=== PATIENT | female | born 1985 | race Caucasian/White ===

== ENCOUNTER 2021-06-28 06:48 | Day surgery (SDC) | payer BC ==
[~2021-06-28] VITALS: Ht 170.2 cm; Wt 72.9 kg
[~2021-06-28 06:48] MED LIST: IPRATROPIUM 0.5 MG/2.5 ML INHA ONE
[2021-06-28] MEDS ORDERED: NO HOME MEDS PER PT (07:13)
[2021-06-28 07:14] VITALS: BP 116/79
[2021-06-28] MEDS ORDERED: LACTATED RINGERS 1,000 ML IV SCH (07:30)
[2021-06-28] MEDS ORDERED: CHLORHEXIDINE 15 ML UDC PO ONE (07:30)
[2021-06-28 07:33] LABS: HCG UR SG 1.009 (1.003-1.030)
[2021-06-28] MEDS ORDERED: MIDAZOLAM 1 MG/ML, 2ML ONE (08:23)
[2021-06-28] MEDS ORDERED: FENTANYL PF 250 MCG/5ML ONE (08:23)
[2021-06-28] MEDS ORDERED: SENN-99 PO (08:25)
[2021-06-28] MEDS ORDERED: ACET325T14 PO (08:25)
[2021-06-28] MEDS ORDERED: IBUP200T49 PO (08:25)
[2021-06-28] MEDS ORDERED: OXYC5TAB2 PO (08:25)
[2021-06-28] MEDS ORDERED: CEFAZOLIN 1,000 MG ONE (08:47)
[2021-06-28] MEDS ORDERED: ONDANSETRON 2MG/ML, 2ML ONE (08:47)
[2021-06-28] MEDS ORDERED: GLYCOPYRROLATE 0.2MG/1ML, 5ML ONE (08:47)
[2021-06-28] MEDS ORDERED: ROCURONIUM 10MG/ML,5ML ONE (08:47)
[2021-06-28] MEDS ORDERED: SUCCINYLCHOLINE 20 MG/ML, 10ML ONE (08:47)
[2021-06-28] MEDS ORDERED: NEOSTIGMINE 1 MG/ML, 10ML ONE (08:47)
[2021-06-28] MEDS ORDERED: PROPOFOL 10 MG/ML, 20ML ONE (08:47)
[2021-06-28] MEDS ORDERED: DEXAMETHASONE 4 MG/ML, 1ML ONE (08:47)
[2021-06-28] MEDS ORDERED: HYDROmorphone 2 MG/ML, 1ML IVPush PRN ×2 (09:00)
[2021-06-28] MEDS ORDERED: MEPERIDINE/PF 25MG/0.5ML IVPush PRN ×2 (09:00)
[2021-06-28] MEDS ORDERED: LABETALOL 5MG/ML, 20ML IV PRN ×2 (09:00)
[2021-06-28] MEDS ORDERED: OXYcodone 5 MG/5 ML ORAL.SOL UDC PO PRN ×2 (09:00)
[2021-06-28] MEDS ORDERED: hydrALAzine 20 MG/ML, 1ML IV PRN ×2 (09:00)
[2021-06-28] MEDS ORDERED: KETOROLAC 30 MG/1 ML IV PRN ×2 (09:00)
[2021-06-28] MEDS ORDERED: ALBUTEROL SULFATE 2.5 MG/3 ML NPPB PRN ×2 (09:00)
[2021-06-28] MEDS ORDERED: ACETAMINOPHEN 325 MG TABLET PO PRN ×2 (09:00)
[2021-06-28] MEDS ORDERED: PROMETHAZINE 25 MG/ML, 1ML IV PRN ×2 (09:00)
[2021-06-28] MEDS ORDERED: FENTANYL PF 100 MCG/2ML IV PRN ×2 (09:00)
[2021-06-28] MEDS ORDERED: DIAZEPAM 5 MG/ML, 2ML IVPush PRN ×2 (09:00)
[2021-06-28] MEDS ORDERED: FENTANYL PF 100 MCG/2ML ONE (09:13)
[2021-06-28] MEDS ORDERED: ACETAMINOPHEN 650 MG/20.3 ML UDC ONE (09:17)
[2021-06-28] MEDS ORDERED: MEPERIDINE/PF 25MG/ML,1ML ONE (09:27)
== END 2021-06-28 10:55 | disposition home or self-care (01) ==
LOC: OUT 06:48
PROVIDERS: ATTEND Otolaryngology
DX: J03.01 Acute recurrent streptococcal tonsillitis (principal); J35.01 Chronic tonsillitis
CPT/HCPCS: 42826; 81025; 88304; J0330; J0690; J1100; J2175; J2250; J2405; J2704; J3010; J7120; J2710